=== PATIENT | female | born 2000 | race Caucasian/White ===

== ENCOUNTER 2024-05-01 19:01 | Emergency (ER) | payer SELFPAY ==
[2024-05-01] MEDS ORDERED: Famotidine 20 MG TAB ONE (21:49)
[2024-05-01] MEDS ORDERED: diphenhydrAMINE 25 MG CAP ONE (21:49)
[2024-05-01] MEDS ORDERED: predniSONE 20 MG TAB ONE (21:50)
== END 2024-05-01 22:20 | disposition home or self-care (01) ==
LOC: ERS 19:01
DX: L29.9 Pruritus, unspecified (principal); T78.40XA Allergy, unspecified, initial encounter
CPT/HCPCS: 99282; J7512